=== PATIENT | female | born 1995 | race Two or more races ===

== ENCOUNTER 2019-02-08 16:04 | Outpatient (CLI) | payer OTHER | END 2019-02-08 17:00 | disposition home or self-care (01) | LOC: RAD 16:04 | DX: M54.5 Low back pain (principal) ==

== ENCOUNTER 2019-08-06 13:11 | Outpatient (CLI) | payer OTHER | END 2019-08-06 13:23 | disposition home or self-care (01) | LOC: RAD 13:11 → MRI 13:15 → RAD 13:23 | PROVIDERS: ATTEND Internal Medicine | DX: G62.89 Other specified polyneuropathies (principal); N92.1 Excessive and frequent menstruation with irregular cycle | CPT/HCPCS: 70551 ==

== ENCOUNTER → 2019-08-11 08:41 | Outpatient (CLI) | payer OTHER | END | disposition home or self-care (01) | LOC: LAB 08:41 | PROVIDERS: ATTEND Internal Medicine | DX: G62.89 Other specified polyneuropathies (principal) ==

== ENCOUNTER 2019-09-30 13:58 | Outpatient (CLI) | payer OTHER | END 2019-09-30 14:58 | disposition home or self-care (01) | LOC: MAMO-SONO 13:58 → SONOGRAMA 13:58 | PROVIDERS: ATTEND General Practice | DX: R92.8 Other abnormal and inconclusive findings on diagnostic imaging of breast (principal); N63.41 Unspecified lump in right breast, subareolar; N63.11 Unspecified lump in the right breast, upper outer quadrant ==

== ENCOUNTER 2019-10-13 13:46 | Outpatient (CLI) | payer OTHER | END 2019-10-13 13:53 | disposition home or self-care (01) | LOC: SONOGRAMA 13:46 | DX: M79.632 Pain in left forearm (principal); M79.631 Pain in right forearm ==

== ENCOUNTER 2019-11-10 14:28 | Outpatient (CLI) | payer OTHER | END 2019-11-10 15:52 | disposition home or self-care (01) | LOC: RAD 14:28 | DX: M17.0 Bilateral primary osteoarthritis of knee (principal); M16.0 Bilateral primary osteoarthritis of hip ==

== ENCOUNTER 2019-11-17 09:29 | Outpatient (CLI) | payer OTHER | END 2019-11-17 09:38 | disposition home or self-care (01) | LOC: RAD 09:29 | PROVIDERS: ATTEND Internal Medicine | DX: R06.02 Shortness of breath (principal) ==

== ENCOUNTER 2019-12-24 08:23 | Outpatient (CLI) | payer OTHER | END 2019-12-24 08:27 | disposition home or self-care (01) | LOC: MRI 08:23 | DX: G93.89 Other specified disorders of brain (principal); G35 Multiple sclerosis | CPT/HCPCS: 70553 ==

== ENCOUNTER 2020-12-26 10:52 | Outpatient (CLI) | payer OTHER | END 2020-12-26 11:04 | disposition home or self-care (01) | LOC: SONOGRAMA 10:52 → MAMO-SONO 14:45 | PROVIDERS: ATTEND General Practice | DX: R10.2 Pelvic and perineal pain (principal) ==

== ENCOUNTER 2020-12-26 11:32 | Outpatient (CLI) | payer OTHER | END 2020-12-26 11:33 | disposition home or self-care (01) | LOC: NUCLEAR 11:32 | PROVIDERS: ATTEND General Practice | DX: I73.9 Peripheral vascular disease, unspecified (principal) ==

== ENCOUNTER 2020-12-27 10:22 | Outpatient (CLI) | payer OTHER | END 2020-12-27 10:23 | disposition home or self-care (01) | LOC: NUCLEAR 10:22 | PROVIDERS: ATTEND General Practice | DX: I87.2 Venous insufficiency (chronic) (peripheral) (principal) ==

== ENCOUNTER 2021-03-08 13:57 | Outpatient (CLI) | payer OTHER | END 2021-03-08 14:05 | disposition home or self-care (01) | LOC: SONOGRAMA 13:57 | PROVIDERS: ATTEND Obstetrics & Gynecology | DX: N83.292 Other ovarian cyst, left side (principal); R10.2 Pelvic and perineal pain ==